=== PATIENT | female | born 1990 | race Caucasian/White ===

== ENCOUNTER 2023-11-07 03:30 | Emergency (ER) | payer OTHER ==
[2023-11-07] MEDS ORDERED: FAMOTIDINE 20 MG TABLET PO STA (03:57)
[2023-11-07] MEDS ORDERED: CHERRY SYRUP 10 ML UDC PO ONE (03:57)
[2023-11-07] MEDS ORDERED: diphenhydrAMINE 25 MG CAPSULE PO STA (03:57)
[2023-11-07] MEDS ORDERED: DEXAMETHASONE 10 MG/ML VIAL PO STA (03:57)
[2023-11-07] MEDS ORDERED: CALAMINE/ZINC OXIDE 177 ML BOTTLE TOP STA (03:57)
--- NOTE | 2023-11-07 04:00 | ED Physician Documentation ---
History of Present Illness - Stated complaint Stated Complaint: ITCHY SKIN - History obtained from History obtained from: Patient - Additonal information Additional information: 33yF with nkda p/w full body itching and rash to BL shoulders and palms starting tonight . patient states she started wellbutrin a couple weeks ago but has had no other med changes. she did buy new clothes and wear them without washing them but thinks her symptoms may have started before then. denies throat tightness, chest pain, soa, dizziness, nausea/vomiting. PD ED PE NORMAL - Vitals Vital signs reviewed: Yes - General General: Alert and oriented X 3, No acute distress, Well developed/nourished - HEENT HEENT: Atraumatic, PERRL, EOMI - Derm Derm: Normal color, Warm and dry, Other (raised blanching plaquelike rash/erythema to BL shoulders. erythema to BL palms) PD Medical Decision Making - ED course ED course: 33yF presents with pruritic rash to upper shoulders/back and BL palms and soles, with full body itching tonight. Benadryl, pepcid, decadron and calamine lotion provided with relief. plan to f/u with pcp for referral to allergy/immunology. strict return precautions given.
[2023-11-07 04:10] VITALS: BP 145/82; O2SAT 96
== END 2023-11-07 04:47 | disposition home or self-care (01) ==
LOC: ED 03:30
DX: R21 Rash and other nonspecific skin eruption (principal)
CPT/HCPCS: 99282; 99283; A9270

== ENCOUNTER 2023-11-17 09:58 | Outpatient (CLI) | payer OTHER ==
--- NOTE | 2023-11-18 08:49 | Ultrasound Report ---
LIMITED ULTRASOUND OF LEFT BREAST: 11/17/2023 CLINICAL: Patient returns today to evaluate a focal asymmetry in the left breast. Comparison is made to exam dated: 11/17/2023 mammogram - [facility]. Color flow ultrasound of the left breast 1 o'clock and 5-7 o'clock regions was performed on the area s of interest. Bonilla scale images of the real-time examination were reviewed. There is a simple cyst in the left breast at 1 o'clock middle depth. This cyst is anechoic with post erior acoustic enhancement. This correlates with mammography findings. Color flow imaging demonstra hans that there is no vascularity present. IMPRESSION: BENIGN There is no sonographic evidence of malignancy. The cyst in the left breast is benign. There is no mammographic or sonographic abnormality seen in the left breast to correspond with the sk in retraction, however, clinical followup is recommended. A 1 year screening mammogram is recommended. This exam was interpreted at Station ID: [id number]. Electronically Signed By: Radha Carbajal M.D. lk/:11/17/2023 17:27:52 Ultrasound BI-RADS: 2 Benign BI-RADS CATEGORY: (2) - 2 Mammogram [id number] 1 year screening LATERALITY: (B)
--- NOTE | 2023-11-18 08:49 | Mammography Report ---
BILATERAL DIGITAL DIAGNOSTIC MAMMOGRAM 3D/2D: 11/17/2023 CLINICAL: Baseline exam. Skin changes in left breast. No prior exams were available for comparison. Both breasts are heterogeneously dense, which may obscure small masses (category c / 51-75% glandular tissue). There is a focal asymmetry in the left breast central to the nipple middle depth. No other significant masses, calcifications, or other findings are seen in either breast. IMPRESSION: INCOMPLETE: NEEDS ADDITIONAL IMAGING EVALUATION The focal asymmetry in the left breast is indeterminate. An ultrasound is recommended. There is no mammographic abnormality seen in the left breast to correspond with the area of clinical concern at 6 o'clock, however, targeted ultrasound of the left breast is recommended and will be perf ormed immediately following this exam. Based on Tyrer-Cuzick model (a risk assessment model), the patient's lifetime risk is 23.3% and her 1 0 year risk is 1.3%. If a patient has an elevated risk, a more comprehensive evaluation should be con sidered and/or a referral to a genetic counselor. The [place] [employer], [place] [employer], and NCCN Guidelines advise the consideration of Breast MRI as an adjunct to screening mammog rodrigo in patients whose "Lifetime risk to develop breast cancer" is 20% or higher. This exam was interpreted at Station ID: [id number]. NOTE: For mammograms, a report in lay terms will be sent to the patient. Approximately 15% of breast malignancies will not be visualized mammographically. In the management of a palpable breast mass, a negative mammogram must not discourage biopsy of a clinically suspicious lesion. Electronically Signed By: Radha Carbajal M.D. lk/:11/17/2023 11:28:00 ACR BI-RADS Category 0: Incomplete 3340F PARENCHYMAL PATTERN: (D) - The breast(s) demonstrate(s) heterogeneously dense fibroglandular parenchy ma. BI-RADS CATEGORY: (0) - 0 Ultrasound [id number] Immediate follow-up LATERALITY: (B)
== END 2023-11-17 09:59 | disposition home or self-care (01) ==
LOC: DI 09:58
PROVIDERS: ATTEND Nurse Practitioner Obstetrics & Gynecology
DX: N60.02 Solitary cyst of left breast (principal); R92.333 Mammographic heterogeneous density, bilateral breasts; Z80.3 Family history of malignant neoplasm of breast

== ENCOUNTER 2024-08-01 14:50 | Outpatient (CLI) | payer OTHER ==
--- NOTE | 2024-08-02 09:28 | Ultrasound Report ---
PROCEDURE: Pelvic w/Transvaginal INDICATIONS: PELVIC PAIN TECHNIQUE: Real-time scanning was performed of the pelvic organs, with image documentation. Additional endovagi nal scanning was necessary due to incomplete visualization of the adnexal and endometrial structures by transabdominal scanning. COMPARISON: None. FINDINGS: Uterus: Uterus is anteverted and normal in size at 6.9 x 3.0 x 4.3 cm. The myometrium is heterogene ous. The endometrium measures 3 mm in combined thickness. Ovaries: The right ovary measures 2.1 x 1.3 x 1.0 cm, with a calculated ovarian volume of 1.4 cc. T he left ovary measures 7 x 1.2 x 1.5 cm, with a calculated ovarian volume of 1.61 cc. The ovaries barron ve a normal sonographic appearance. Less than 12 follicles can be seen in each ovary. No adnexal ma sses are seen. No cystic lesions measuring greater than 3 cm. Other: No pathologic free abdominal or pelvic fluid. IMPRESSION: Unremarkable pelvic ultrasound. Reviewed by: Misti Castañeda MD, PhD on 08/02/2024 9:27 AM PDT Approved by: Misti Castañeda MD, PhD on 08/02/2024 9:27 AM PDT Station ID: [id number]
== END 2024-08-01 14:51 | disposition home or self-care (01) ==
LOC: DI 14:50
PROVIDERS: ATTEND Nurse Practitioner Obstetrics & Gynecology
DX: R10.2 Pelvic and perineal pain (principal)